=== PATIENT | female | born 1955 | race Asian ===

== ENCOUNTER 2025-03-28 23:30 | Inpatient (IN) | payer MEDICARE, MEDICAID ==
[~2025-03-28] VITALS: Ht 154.9 cm; Wt 68.9 kg
[2025-03-28 23:33] VITALS: O2SAT 98
[2025-03-29] MEDS ORDERED: LORAZEPAM 0.5MG TABLET PO ONE (00:15)
[2025-03-29 00:50] LABS: BASOPHILS % 0.6 % (0.0-2.0); EOSINOPHILS % 0.7 % (0.0-5.0); HEMATOCRIT. 39.6 % (36.0-48.0); HEMOGLOBIN. 13.1 g/dL (12.0-16.0); LYMPHOCYTES % 13.5 % (20.0-50.0); MEAN PLATELET VOLUME 8.0 fl (7.4-10.4); MONOCYTES % 6.2 % (2.0-8.0); NEUTROPHILS % 79.0 % (40.0-76.0); PLATELET 260 x1000/uL (130-400); RED BLOOD CELL COUNT 4.69 mill/uL (4.2-5.4); RED CELL DISTRIBUTION WIDTH 13.7 % (11.6-14.6)
[2025-03-29 00:56] LABS: CREATININE 0.7 mg/dL (0.6-1.0); UREA NITROGEN BLOOD 6 mg/dL (9-23)
[2025-03-29] MEDS: LORAZEPAM 0.5MG TABLET PO NR (01:25)
[2025-03-29 02:02] LABS: ASPARTATE AMINOTRANSFERASE 30 IU/L (<34); BILIRUBIN DIRECT 0.2 mg/dL (<=3.0); TROPONIN I HIGH SENSITIVITY < 4 ng/L (3.0-34)
[2025-03-29 02:03] LABS: BILIRUBIN TOTAL 0.8 mg/dL (0.1-1.0); PROTEIN TOTAL 7.2 g/dL (6.0-8.3)
[2025-03-29] MEDS ORDERED: CLONIDINE 0.1MG TABLET PO PRN (05:00)
[2025-03-29] MEDS ORDERED: ACETAMINOPHEN 325MG TABLET PO PRN ×2 (05:00)
[2025-03-29] MEDS ORDERED: DIPHENHYDRAMINE 50MG/ML VIAL IV PRN (05:00)
[2025-03-29] MEDS ORDERED: ONDANSETRON HCL 4MG/2ML INJ IV PRN (05:00)
[2025-03-29] MEDS ORDERED: LORAZEPAM 0.5MG TABLET PO PRN (05:00)
[2025-03-29] MEDS ORDERED: IPRATROPIUM/ALBUTEROL 0.5-3(2.5)MG/3ML NEB HHN PRN (05:00)
[2025-03-29] MEDS ORDERED: DEXTROSE 50% WATER 50ML SYRINGE IV PRN (05:00)
[2025-03-29] MEDS ORDERED: DOCUSATE SODIUM 100MG CAPSULE PO PRN (05:00)
[2025-03-29 05:09] VITALS: BP 109/70; PULSE 69; RESP 18; TEMP 36.0288
[2025-03-29] MEDS ORDERED: METF-1149 MT (05:18)
[2025-03-29] MEDS ORDERED: HYDR12.54 PO (05:18)
[2025-03-29] MEDS ORDERED: AMLO10TA80 PO (05:18)
[2025-03-29] MEDS ORDERED: LOSA50TA41 MT (05:18)
[2025-03-29] MEDS ORDERED: ASPI-986 PO (05:18)
[2025-03-29] MEDS: POTASSIUM CHLORIDE 20MEQ TABLET SR PO NR (05:39)
[2025-03-29] MEDS: LOSARTAN 50 MG TABLET PO SCH (05:42)
[2025-03-29] MEDS: SODIUM CHLORIDE 0.9% 1,000 ML IV SCH (05:43)
[2025-03-29] MEDS: BLOOD SUGAR DIAGNOSTIC STRIP TEST SCH (05:55)
[2025-03-29] MEDS: INSULIN LISPRO 100 UNITS/ML SUBCUT SCH (07:12)
[2025-03-29 08:00] VITALS: BP 133/54; PULSE 67; RESP 16; TEMP 36.6; O2SAT 98
[2025-03-29] MEDS: HYDROCHLOROTHIAZIDE 12.5MG CAPSULE PO SCH (09:00)
[2025-03-29] MEDS: ASPIRIN 81MG TABLET PO SCH (09:15)
[2025-03-29 12:00] VITALS: BP 115/50; PULSE 60; RESP 18; TEMP 36.1; O2SAT 97
[2025-03-29 16:00] VITALS: BP 119/48; PULSE 69; RESP 18; TEMP 36.5; O2SAT 99
[2025-03-29 22:28] LABS: CREATININE 0.7 mg/dL (0.6-1.0)
[2025-03-29 22:29] LABS: UREA NITROGEN BLOOD 7 mg/dL (9-23)
[2025-03-29 22:30] LABS: PHOSPHORUS 3.1 mg/dL (2.5-4.9)
== END 2025-03-29 21:33 | disposition left against medical advice (07) | DRG 641 ==
LOC: ER 03-29 00:12 → 5WST 03-29 02:04 → EDBEDREQTM 03-29 02:13 → EDBEDREQ 03-29 02:13 → ENRESERV 03-29 03:48
PROVIDERS: ADMIT Internal Medicine; ATTEND Internal Medicine
DX: E87.6 Hypokalemia (principal); F41.0 Panic disorder [episodic paroxysmal anxiety]; E11.9 Type 2 diabetes mellitus without complications; I10 Essential (primary) hypertension; Z53.29 Procedure and treatment not carried out because of patient's decision for other reasons; J45.909 Unspecified asthma, uncomplicated; Z82.0 Family history of epilepsy and other diseases of the nervous system
CPT/HCPCS: 36415; 71045; 80048; 80076; 82962; 83036; 83735; 84100; 84484; 85025; 93005; 93970; 99285; J7030